=== PATIENT | female | born 1950 | race African-American/Black ===

== ENCOUNTER → 2025-01-09 | Day surgery (SDC) | payer MEDICARE, MEDICAID ==
[~2025-01-09] MED LIST: ACETAMINOPHEN 325MG TABLET PO PRN; AMLO-905 PO; ASPI-1497 PO; ATOR40TA70 MT; BIMA2.5D4 BOTHEYE; ERGO1250 PO; FENTANYL CITRATE/PF 50MCG/ML 2ML VIAL ONE; HEPARIN 1000 UNITS/ML 10ML ONE; IBUP-2030 PO; IODIXANOL 320MG/ML 100 ML BOTTLE IV ONE; LIDOCAINE HCL 1% 20ML VIAL ONE; MIDAZOLAM HCL 2 MG/2 ML VIAL ONE; ONDANSETRON HCL 4MG/2ML INJ IV PRN
== END | disposition home or self-care (01) ==
LOC: CCL 06:53
PROVIDERS: ATTEND Specialist
DX: I25.10 Atherosclerotic heart disease of native coronary artery without angina pectoris (principal); R94.39 Abnormal result of other cardiovascular function study; I12.9 Hypertensive chronic kidney disease with stage 1 through stage 4 chronic kidney disease, or unspecified chronic kidney disease; E11.22 Type 2 diabetes mellitus with diabetic chronic kidney disease; N18.9 Chronic kidney disease, unspecified; E66.9 Obesity, unspecified; E78.00 Pure hypercholesterolemia, unspecified; F17.200 Nicotine dependence, unspecified, uncomplicated; Z79.899 Other long term (current) drug therapy; Z79.82 Long term (current) use of aspirin; Z98.890 Other specified postprocedural states
CPT/HCPCS: 93458; 82962; C1893; C1725; C1769 ×2; J3010; Q9967; J1644 ×2; J2003; J2250; C1887 ×2; 99152; 99153; G0500